=== PATIENT | male | born 1950 | race American Indian/Alaskan Native ===

== ENCOUNTER 2017-03-24 06:19 | Outpatient (CLI) | payer MEDICARE ==
--- NOTE | 2017-03-24 11:14 | PET Report ---
PET/CT:03/24/17 06:19:00 CLINICAL: Pulmonary nodule. RADIOPHARMACEUTICAL: 15.1mCi F18-FDG. COMPARISON: None. TECHNIQUE- Following intravenous injection of F-18 FDG and an approximately 60 minute uptake period, CT and PET images from the mid skull to the upper thighs were acquired with the patient in the fasted state. No contrast was administered. The CT protocol used for this PET CT study is designed for attenuation correction and anatomic localization of PET abnormalities. This employee relations director CT is not desired to produce and cannot replace, [id number] diagnostic CT scans with specific imaging protocols for different body parts and indications. Plasma glucose the time of this test: 111g/dl. The standardized uptake values (SUV) are normalized to patient body weight and indicate the highest activity concentration (SUV max) in a given disease site. FINDINGS: Brain--Physiologic FDG uptake in the visualized regions of the brain. Neck--Physiologic FDG uptake . Chest--Physiologic FDG uptake in mediastinal blood pool and myocardium. Lungs--No abnormal uptake. A 5 mm noncalcified non-FDG avid left upper lobe lung nodule and no other lung nodule or mass. Extensive bilateral basal fibrotic changes. Moderate emphysema. Pleura/pericardium--No abnormal uptake. Thoracic nodes--No abnormal uptake. Hepatobiliary--No abnormal uptake. Liver background SUV mean, as a reference for comparing FDG studies, is 5.6 . No liver mass. Spleen--No abnormal uptake. Pancreas--No abnormal uptake. Adrenal Glands--No abnormal uptake. Kidneys/Ureters/Bladder--No abnormal uptake. Abdominopelvic Nodes--No abnormal uptake. Bowel/Peritoneum/Mesentery--No abnormal uptake. Pelvic organs--No abnormal uptake. Bones/Soft Tissues--No abnormal uptake. No suspicious bone lesion. Other findings: Physiologic focal FDG uptake in the cecum. IMPRESSION- 1. A 5 mm non-FDG avid noncalcified left upper lobe lung nodule. Recommend CT followup in six months. 2. Bilateral lower lobe lung fibrosis.
== END 2017-03-24 06:20 | disposition home or self-care (01) ==
LOC: PET 06:19
PROVIDERS: ATTEND Internal Medicine
DX: R91.1 Solitary pulmonary nodule (principal); J84.10 Pulmonary fibrosis, unspecified; J43.9 Emphysema, unspecified
CPT/HCPCS: 78815; 82962; A9552

== ENCOUNTER 2018-07-13 07:30 | Outpatient (CLI) | payer MEDICARE ==
--- NOTE | 2018-07-17 08:37 | PET Report ---
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 TECHNIQUE: 16.5 millicuries F-18 FDG was administered intravenously. Noncontrast CT images and PET images were obtained from the skull base to the proximal thighs. Fused images were reviewed on a workstation. The patient's blood glucose level measured 96. COMPARISON: 03/24/17. FINDINGS: BRAIN: physiologic FDG uptake in the imaged brain. NECK: physiologic FDG uptake. MEDIASTINUM: physiologic FDG uptake. LUNGS: physiologic FDG uptake. Moderate emphysematous changes in the upper lobes are noted. The previously described 5 mm nodule in the left lung is unchanged in size and contour. Max SUV measures 1.2. I suspect this represents a pleural fold. 5 mm calcified granuloma in the left lower lobe is unchanged. No new pulmonary lesion. PLEURA/PERICARDIUM: physiologic FDG uptake. THORACIC LYMPH NODES: physiologic FDG uptake. HEPATOBILIARY: physiologic FDG uptake. Mean liver SUV measures 4.1. PANCREAS: physiologic FDG uptake. SPLEEN: physiologic FDG uptake. ADRENAL GLANDS: physiologic FDG uptake. KIDNEYS/RENAL COLLECTING SYSTEMS: physiologic FDG uptake. BOWEL/MESENTERY: Surgical suture line is noted in the proximal colon. There is no obvious recurrent colon mass. The remaining bowel loops are unremarkable. There is however a new 2.3 cm soft tissue density nodule within the mesentery of the mid abdomen. This is adjacent to the surgical site in the proximal colon. Max SUV of this nodule measures 1.7. No additional suspicious nodule is identified in the mesentery. PELVIC VISCERA: physiologic FDG uptake. ABDOMINAL/PELVIC LYMPH NODES: physiologic FDG uptake. MUSCULOSKELETAL: physiologic FDG uptake. IMPRESSION: There is a new 2.3 cm mesenteric nodule as outlined above. This nodule is hypometabolic with max SUV measuring 1.7 although this nodule is suspicious since it is new since 03/24/17 exam. This could represent an enlarged hypometabolic lymph node. Close interval followup or CT guided biopsy should be considered. This nodule may be accessible by CT-guided biopsy. No change in the 5 mm left lung nodule. I suspect this represents a pleural fold.
== END 2018-07-13 07:31 | disposition home or self-care (01) ==
LOC: PET 07:30
PROVIDERS: ATTEND Internal Medicine Hematology & Oncology
DX: C18.0 Malignant neoplasm of cecum (principal); J44.9 Chronic obstructive pulmonary disease, unspecified; I13.0 Hypertensive heart and chronic kidney disease with heart failure and stage 1 through stage 4 chronic kidney disease, or unspecified chronic kidney disease; E11.22 Type 2 diabetes mellitus with diabetic chronic kidney disease; N18.2 Chronic kidney disease, stage 2 (mild); I50.9 Heart failure, unspecified; E78.5 Hyperlipidemia, unspecified; E66.01 Morbid (severe) obesity due to excess calories; K21.9 Gastro-esophageal reflux disease without esophagitis
CPT/HCPCS: 78815; 82962; A9552